=== PATIENT | female | born 1980 | race African-American/Black ===

== ENCOUNTER 2017-12-24 13:36 | Emergency (ER) | payer SELFPAY ==
[2017-12-24] MEDS ORDERED: Ketorolac Tromethamine 30 MG/ML VIAL ONE (13:52)
[2017-12-24] MEDS ORDERED: Cyclobenzaprine 10 MG TAB ONE (13:52)
--- NOTE | 2017-12-24 14:36 | RAD ---
PA AND LATERAL VIEWS CHEST: Date: 12/24/17 HISTORY: Trauma. Chest pain. FINDINGS: The cardiomediastinum is normal. The lungs are expanded and clear. The bony thorax is unremarkable. IMPRESSION: Normal exam. POS: [facility]
== END 2017-12-24 14:53 | disposition home or self-care (01) ==
LOC: ERS 13:36
DX: S20.221A Contusion of right back wall of thorax, initial encounter (principal); W19.XXXA Unspecified fall, initial encounter
CPT/HCPCS: 71046; 96372; J1885

== ENCOUNTER 2018-01-15 15:16 | Emergency (ER) | payer SELFPAY ==
[2018-01-15] MEDS ORDERED: Ibuprofen 200 MG TAB ONE (15:55)
== END 2018-01-15 15:57 | disposition home or self-care (01) ==
LOC: ERS 15:16
DX: S80.812A Abrasion, left lower leg, initial encounter (principal); V49.40XA Driver injured in collision with unspecified motor vehicles in traffic accident, initial encounter
CPT/HCPCS: 99283

== ENCOUNTER 2018-02-01 18:06 | Emergency (ER) | payer SELFPAY ==
[2018-02-01] MEDS ORDERED: Lidocaine 1% w/Epinephrine 1:100K 20 ML VIAL ONE (19:27)
[2018-02-01] MEDS ORDERED: Bacitracin Zinc 1 Packet ONE (19:28)
[2018-02-01] MEDS ORDERED: Ibuprofen 800 MG TAB ONE (20:18)
== END 2018-02-01 20:25 | disposition home or self-care (01) ==
LOC: ERS 18:06
DX: S01.112A Laceration without foreign body of left eyelid and periocular area, initial encounter (principal); W22.8XXA Striking against or struck by other objects, initial encounter
CPT/HCPCS: 12013; J2001